=== PATIENT | female | born 1945 | race Caucasian/White ===

== ENCOUNTER → 2017-10-12 | Outpatient (CLI) | payer MEDICARE, OTHER ==
[~2017-10-12] MED LIST: CALC1TAB12 PO; COLA100C5 PO; LEVO75TA3 PO; META48.53 PO; MULTTAB67 PO; SACC1CAP3 PO; SIMV20TA PO
--- NOTE | 2017-10-12 10:09 | RADRPT ---
EXAM DATE/TIME: 10/12/2017 09:40 [facility] COMPARISON: No previous studies available for comparison. INDICATIONS : Evaluate for pneumonia, pneumthorax or communicable disease. Preop chest for hip replacement on MEDICAL HISTORY : Carcinoma, lung. SURGICAL HISTORY : right upper lung ENCOUNTER: Initial ACUITY: 1 day PAIN SCORE: 0/10 LOCATION: Bilateral chest FINDINGS: The heart and mediastinal contours are within normal limits. The lungs demonstrate chronic appearing interstitial changes but are otherwise clear. There are surgical clips noted in the right miles. Note is made of postsurgical changes in the posterior right fifth and sixth ribs. The remainder the v isualized osseous structures are grossly intact. CONCLUSION: 1. Post surgical changes. No acute abnormality. Trey Pascual MD on October 12, 2017 at 10:07 Board Certified Radiologist. This report was verified electronically.
[2017-10-12 10:16] LABS: PROTHROMBIN TIME - PATIENT 9.7 SEC (9.8-11.6)
[2017-10-12 10:17] LABS: AUTOMATED NEUTROPHIL # 3.8 TH/MM3 (1.8-7.7); BASOPHIL % 0.3 % (0.0-2.0); EOSINOPHIL # 0.1 TH/MM3 (0-0.4); EOSINOPHIL % 1.5 % (0.0-4.0); HEMATOCRIT 42.9 % (35.0-46.0); HEMOGLOBIN 14.5 GM/DL (11.6-15.3); LYMPH % 25.2 % (9.0-44.0); LYMPHOCYTE # 1.5 TH/MM3 (1.0-4.8); MEAN CELL VOLUME 95.5 FL (80.0-100.0); MEAN CORPUSCULAR HEMOGLOBIN 32.2 PG (27.0-34.0); MEAN CORPUSCULAR HGB CONC 33.7 % (32.0-36.0); MONO % 8.1 % (0.0-8.0); MONOCYTE # 0.5 TH/MM3 (0-0.9); NEUT % 64.9 % (16.0-70.0); PLATELET COUNT 218 TH/MM3 (150-450); RED BLOOD COUNT 4.49 MIL/MM3 (4.00-5.30); WHITE BLOOD COUNT 5.9 TH/MM3 (4.0-11.0)
[2017-10-12 10:17] LABS: BACTERIA, URINE RARE /hpf; BILIRUBIN, URINE NEG (NEG); BLOOD, URINE NEG (NEG); GLUCOSE,URINE NEG (NEG); KETONE, URINE NEG (NEG); MUCUS URINE FEW /lpf (OCC); NITRITE,URINE NEG (NEG); PH, URINE 5.5 (5.0-8.5); RENAL EPITHELIAL CELLS <1 /hpf; URINE COLOR YELLOW (YELLW/STRAW); URINE LEUKOCYTE ESTERASE LARGE (NEG)
[2017-10-12 10:30] LABS: BICARBONATE 29.1 MEQ/L (21.0-32.0); CALCIUM 9.6 MG/DL (8.5-10.1); CREATININE 0.83 MG/DL (0.50-1.00)
== END ==
LOC: CPRE 08:38
PROVIDERS: ATTEND Orthopaedic Surgery Orthopaedic Trauma
DX: Z01.810 Encounter for preprocedural cardiovascular examination (principal); Z01.811 Encounter for preprocedural respiratory examination; Z01.812 Encounter for preprocedural laboratory examination; Z01.818 Encounter for other preprocedural examination; Z96.60 Presence of unspecified orthopedic joint implant; Z79.01 Long term (current) use of anticoagulants; Z13.9 Encounter for screening, unspecified; M79.609 Pain in unspecified limb; R82.99 Other abnormal findings in urine
CPT/HCPCS: 36415; 71046; 80048; 81001; 85025; 85610; 85730; 87086

== ENCOUNTER → 2017-10-26 | Outpatient (CLI) | payer MEDICARE, OTHER ==
[~2017-10-26] MED LIST changes: +TYLE325T PO
--- NOTE | 2017-10-27 14:38 | EKG ---
Date Performed: 10/26/2017 Time Performed: 15:07:17 PTAGE: 72 years EKG: Sinus rhythm MARKED LEFT AXIS DEVIATION NONSPECIFIC ST & T-WAVE ABNORMALITY ABNORMAL ECG NO PREVIOUS TRACING DOCTOR: Sixto Beaver Interpretating Date/Time 10/27/2017 14:34:15
== END ==
LOC: CPRE 14:58
PROVIDERS: ATTEND Orthopaedic Surgery Orthopaedic Trauma
DX: Z01.810 Encounter for preprocedural cardiovascular examination (principal); M79.609 Pain in unspecified limb; R94.31 Abnormal electrocardiogram [ECG] [EKG]; Z96.60 Presence of unspecified orthopedic joint implant; Z79.01 Long term (current) use of anticoagulants; Z13.9 Encounter for screening, unspecified; Z01.818 Encounter for other preprocedural examination
CPT/HCPCS: 93005

== ENCOUNTER 2017-10-29 05:13 | Inpatient (IN) | payer MEDICARE, OTHER ==
[~2017-10-29] VITALS: Ht 157.5 cm; Wt 71.7 kg
[~2017-10-29 05:13] MED LIST changes: -TYLE325T PO
[2017-10-29] MEDS ORDERED: ceFAZolin 2 GM PREMIX 50 ML IV SCH ×2 (05:45→13:00)
[2017-10-29] MEDS ORDERED: ONDANSETRON HCL 4 MG/2 ML VIAL IV PUSH ONE (05:45)
[2017-10-29] MEDS ORDERED: DEXAMETHASONE SOD PHOS PF 10 MG/ML VIAL IV PUSH ONE (05:45)
[2017-10-29] MEDS ORDERED: VANCOMYCIN 1000 MG/NS 250 ML (for <70 kg) IV SCH ×2 (05:45)
[2017-10-29] MEDS ORDERED: POVIDONE IODINE 5% (ANTISEPSIS KIT) 4 APPLICATIONS EACH NARE PRN (05:45)
[2017-10-29] MEDS ORDERED: INSULIN HUMAN REGULAR 1,000 UNITS/10 ML VIAL SQ PRN (05:45)
[2017-10-29] MEDS ORDERED: GABAPENTIN 300 MG CAP PO ONE (05:45)
[2017-10-29] MEDS ORDERED: CHLORHEXIDINE GLUCONATE 2 % 1 PACK (2 CLOTHS) TOPICAL PRN (05:45)
[2017-10-29] MEDS ORDERED: CELECOXIB 200 MG CAP PO ONE (05:45)
[2017-10-29] MEDS ORDERED: METOPROLOL TARTRATE 25 MG TAB PO PRN (05:45)
[2017-10-29] MEDS ORDERED: SODIUM CHLORID 0.9% 500 ML IV PRN (05:45)
[2017-10-29] MEDS ORDERED: ACETAMINOPHEN 1000 MG/100 ML 100 ML IV ONE (05:45)
[2017-10-29] MEDS ORDERED: FAMOTIDINE 20 MG/2 ML VIAL IV PUSH ONE (05:45)
[2017-10-29] MEDS ORDERED: LACTATED RINGER'S 1000 ML IV PRN (05:45)
[2017-10-29] MEDS ORDERED: CHLORHEXIDINE GLUCONATE 4% SOLN 120 ML BTL TOPICAL SCH (05:45)
[2017-10-29] MEDS ORDERED: VANCOMYCIN 1 GM/200 ML INJ 200 ML IV ONE (05:46)
[2017-10-29] MEDS ORDERED: ACETAMINOPHEN 1000 MG/100 ML 0 ML IV ONE (06:21)
[2017-10-29] MEDS ORDERED: MIDAZOLAM HCL 2 MG/2 ML VIAL ONE (06:22)
[2017-10-29] MEDS ORDERED: FAMOTIDINE 20 MG/2 ML VIAL ONE (06:22)
[2017-10-29 06:24] LABS: BACTERIA, URINE RARE /hpf; BILIRUBIN, URINE NEG (NEG); BLOOD, URINE NEG (NEG); GLUCOSE,URINE NEG (NEG); KETONE, URINE NEG (NEG); MUCUS URINE FEW /lpf (OCC); NITRITE,URINE NEG (NEG); PH, URINE 6.5 (5.0-8.5); SQUAMOUS EPITHELIAL CELL URINE <1 /hpf (0-5); URINE COLOR YELLOW (YELLW/STRAW); URINE LEUKOCYTE ESTERASE NEG (NEG)
[2017-10-29] MEDS ORDERED: GENTAMICIN SULFATE 80 MG/2 ML VIAL ONE (06:34)
[2017-10-29] MEDS ORDERED: TRANEXAMIC ACID IV SCH (07:00)
[2017-10-29] MEDS ORDERED: BUPIVACAINE-EPI PF 0.25% INJ 20 ML, BUPIVACAINE LIPOSO PF 1.3% INJ 20 ML in SODIUM CHLO... P-ARTICULR SCH (07:00)
[2017-10-29] MEDS ORDERED: SODIUM CHLORIDE 0.9% IV SCH (07:00)
--- NOTE | 2017-10-29 08:57 | PD.OP ---
cc: Anatoly Ovalle MD Operative Report Date of Surgery: Oct 29, 2017 Preoperative Diagnosis: Severe left hip osteoarthritis Postoperative Diagnosis: Procedure: Left total hip arthroplasty by anterior approach Surgeon: Antaoly Ovalle Section Cutter(s): LOUISA Umanzor PA-C The surgical procedure was assisted by my physician home health assistant. My P.A. presence was necessary throughout this case for the manipulation and positioning of the surgical extremity. My P.A. was assisting me throughout the duration of this procedure. The skill set of a physician home health assistant was medically necessary to complete this procedure. During the surgical case the surgical nurse practitioner was working at the back table and the physician home health assistant was directly assisting me. Operation and Findings: PLAN OF ACTIVITY Weight bear as tolerated. DRAINS: 7-mm MILEY drain. IMPLANTS USED DePuy Corail size [11] collared stem with a size [48] Aurora Gription cup, [48 /32] Altrx poly liner, and a [standard +1 metal femoral head DETAILS OF PROCEDURE: This patient has a long history of hip pain. Patient was found to have severe osteoarthritis. The patient had radiographic evidence of joint space narrowing with [id number] arthritis and osteophytes around the acetabulum as well as the femoral head. There was also some cystic changes. The patient failed conservative treatment with pain medications, anti-inflammatories, physical therapy, assistive devices including a cane, as well as therapeutic injection of the hip. Patient's hip arthritis was limiting his ability to ambulate and perform activities of daily living. The patient wished to proceed with surgery and informed consent was obtained. Operative site was marked. I discussed both posterior approach and anterior approach with the patient and decision was made for anterior approach. Patient was brought to OR and placed on OR table. IV sedation and general anesthesia was administered by anesthesiologist. Patient positioned on a Sonam table and was given IV antibiotics. Time-out procedure was performed. The hip and thigh were prepped with alcohol followed by Hibiclens. The thigh was draped in the usual sterile fashion. Clean Air Suite was used for this procedure. The procedure began with a 5-inch incision over the anterolateral thigh. Subcutaneous tissue was dissected with Bovie. The fascia over the tensa fasciae latae was incised. Care was taken to avoid injury to the lateral femoral cutaneous nerve. The tensor muscle was retracted laterally. Sartorius was retracted medially. Retractors were now placed. The reflected head of the rectus is now elevated. A capsulotomy was performed over the anterior head capsule. Sutures were placed to help retract the capsule. At this point the femoral head and neck were identified. With soft tissue protected, oscillating saw was used to make a cut through the femoral neck, the femoral head was now removed. At this point attention was turned to preparation of the acetabulum. The labrum was excised. The acetabulum was sequentially reamed up to size [48]. A Aurora cup was now placed. There is a small area of bone cyst in the central portion of the acetabulum. This was filled with 1 cc of DBM. Fluoroscopy was used to aid in identification of appropriate version. Cup was fully impacted and found to have excellent fit. Hole eliminator was now placed. 2 screws were placed in appropriate position. The liner was now impacted into the cup. At this point the hip was externally rotated. A hook was placed around the proximal femur. The capsule was released off the lateral and medial femur. The hip was now extended and adducted. Retractors were placed around the proximal femur to allow for exposure. A box osteotome was used to remove the lateral cortex of the femoral neck. A broach was used to help lateralize the prosthesis. Canal finder was used to create a path down the canal. Next, the canal was sequentially broached up to size [11]. This was found to be an excellent fit. Calcar planer was placed. A standard head was placed, and the hip was reduced. The hip was found to have excellent stability with good range of motion. The leg lengths were measured under fluoroscopy and found to be equal compared to preoperatively. Trial broach was removed. The Corail stem was opened. Stem was fully impacted into the proximal femur in appropriate version. The femoral head was placed. The hip was again reduced. Fluoroscopy confirmed excellent alignment of prosthesis. The wound was thoroughly irrigated and capsule was closed with #1 Vicryl. The fascia over the tensor fasciae muscle was closed with #1 Vicryl, subcutaneous tissue was closed with 3-0 Vicryl and the skin was closed with dilcia and Dermabond skin closure. The capsule layers, muscle, and subcutaneous tissue were injected with a mixture of saline and bupivicaine. Dressings were applied. The patient was transferred to Recovery Room in stable condition. Anatoly Ovalle MD Oct 29, 2017 08:57
[2017-10-29] MEDS: ACETAMINOPHEN 1000 MG/100 ML 100 ML IV SCH ×2 (09:00→22:04)
[2017-10-29] MEDS: LACTATED RINGER'S 1000 ML INJ 1,000 ML IV SCH ×2 (09:00→22:11)
[2017-10-29] MEDS ORDERED: ACETAMINOPHEN/HYDROcodone 325 MG/10 MG TAB PO PRN (09:00)
[2017-10-29] MEDS ORDERED: ACETAMINOPHEN/HYDROcodone 325 MG/5 MG TAB PO PRN (09:00)
[2017-10-29] MEDS ORDERED: ACETAMINOPHEN/HYDROcodone 325 MG/7.5 MG TAB PO PRN (09:00)
[2017-10-29] MEDS ORDERED: NALOXONE HCL 0.4 MG/ML AMP IV PUSH PRN (09:00)
[2017-10-29] MEDS ORDERED: MORPHINE SULFATE 4 MG/ML INJ IV PUSH PRN (09:00)
[2017-10-29] MEDS: CELECOXIB 200 MG CAP PO SCH ×2 (09:00→21:06)
[2017-10-29] MEDS ORDERED: ONDANSETRON HCL 4 MG/2 ML VIAL IVP PRN (09:00)
[2017-10-29] MEDS ORDERED: Post-op Orders (for Pharmacy) XX ONE (09:20)
[2017-10-29] MEDS: KETOROLAC TROMETHAMINE 30 MG/ML (IVP) VIAL IV PUSH SCH ×2 (09:30→22:06)
[2017-10-29] MEDS ORDERED: PSYLLIUM HUSK SF 3.4 GM in 5.8 GM PKT PO PRN (10:00)
[2017-10-29] MEDS: LEVOTHYROXINE SODIUM 75 MCG TAB PO SCH (10:00)
[2017-10-29] MEDS ORDERED: TRANEXAMIC ACID INJ 1,000 MG in SODIUM CHLORIDE 0.9% INJ 100 ML IV ONE (10:00)
[2017-10-29] MEDS: CALCIUM/VITAMIN D 250 MG/125 U TAB PO SCH (10:00)
--- NOTE | 2017-10-29 11:11 | RADRPT ---
EXAM DATE/TIME: 10/29/2017 09:51 [facility] COMPARISON: No previous studies available for comparison. INDICATIONS : Post-op total left hip arthroplasty. MEDICAL HISTORY : None. SURGICAL HISTORY : Lobectomy. Colon resection. ENCOUNTER: Initial ACUITY: 1 day PAIN SCORE: 6/10 LOCATION: Left hip. FINDINGS: Patient is status post placement of a left hip prosthesis. There is good position and alignment of th e prosthesis and bony structures. The bony structures are grossly intact. Postsurgical changes are pr esent. CONCLUSION: Good position and alignment on this postoperative examination. Jorge L Monk MD on October 29, 2017 at 11:09 Board Certified Radiologist. This report was verified electronically.
[2017-10-29] MEDS ORDERED: DO NOT ADM ANY ANTICOAGULANT DRUGS PRN (11:45)
[2017-10-29 12:00] VITALS: BP 96/54; PULSE 78; RESP 18; TEMP 97.5; O2SAT 97
[2017-10-29] MEDS ORDERED: ROCURONIUM INJ 50 MG/5 ML SYRINGE IV PUSH ONE (12:00)
[2017-10-29] MEDS ORDERED: LIDOCAINE HCL 1% PF 5 ML SYRINGE OTHER ONE (12:00)
[2017-10-29] MEDS ORDERED: ePHEDrine/NS 25 MG/5 ML SYRINGE IV ONE (12:00)
[2017-10-29] MEDS ORDERED: ceFAZolin INJ 1,000 MG VIAL IV ONE (12:00)
[2017-10-29] MEDS ORDERED: ESMOLOL HCL 100 MG/10 ML VIAL IV ONE (12:00)
[2017-10-29] MEDS ORDERED: PHENYLEPH/NS 1000 MCG/10 ML SYR IV ONE (12:00)
[2017-10-29] MEDS ORDERED: LACTATED RINGER'S 1000 ML INJ 1,000 ML IV ONE (12:00)
[2017-10-29] MEDS ORDERED: NEOSTIGMINE 5 MG/5 ML SYRINGE IV PUSH ONE (12:00)
[2017-10-29] MEDS ORDERED: GLYCOPYRROLATE 1 MG/5 ML SYRINGE IV PUSH ONE (12:00)
[2017-10-29] MEDS ORDERED: PROPOFOL 200 MG/20 ML AMP IV ONE (12:00)
--- NOTE | 2017-10-29 13:40 | RADRPT ---
EXAM DATE/TIME: 10/29/2017 07:10 [facility] COMPARISON: No previous studies available for comparison. INDICATIONS : Left total hip replacement. MEDICAL HISTORY : None. SURGICAL HISTORY : None. ENCOUNTER: Initial ACUITY: 1 day PAIN SCORE: Non-responsive. LOCATION: Left hip FINDINGS: Patient is status post placement of a left hip prosthesis. There is good position and alignment of th e prosthesis and bony structures. The bony structures are grossly intact. Postsurgical changes are pr esent. CONCLUSION: Good position and alignment on this postoperative examination. Jorge L Monk MD on October 29, 2017 at 13:38 Board Certified Radiologist. This report was verified electronically.
[2017-10-29 15:32] VITALS: O2SAT 99
[2017-10-29 16:20] VITALS: BP 90/54; PULSE 83; RESP 18; TEMP 97.3; O2SAT 99
[2017-10-29] MEDS: VANCOMYCIN INJ 1,000 MG in SODIUM CHLOR 0.9% 250 ML INJ 250 ML IV SCH (17:04)
[2017-10-29] MEDS ORDERED: ACETAMINOPHEN 500 MG CPLT PO PRN (18:00)
[2017-10-29 19:20] VITALS: BP 103/70; PULSE 74; RESP 13; TEMP 97.5; O2SAT 93
[2017-10-29] MEDS: CEFAZOLIN INJ 2,000 MG in SODIUM CHLORIDE 0.9% INJ 100 ML IV SCH ×2 (19:41→19:42)
[2017-10-29] MEDS ORDERED: PRAVASTATIN SOD 40 MG TAB PO SCH (21:00)
[2017-10-30] VITALS: BP 101/69; PULSE 84; RESP 20; TEMP 98.3; O2SAT 97
[2017-10-30 04:00] VITALS: BP 100/56; PULSE 78; RESP 20; TEMP 98.3; O2SAT 98
[2017-10-30] MEDS: VANCOMYCIN INJ 1,000 MG in SODIUM CHLOR 0.9% 250 ML INJ 250 ML IV SCH (06:06)
[2017-10-30] MEDS: LEVOTHYROXINE SODIUM 75 MCG TAB PO SCH (06:06)
[2017-10-30 06:09] LABS: HEMATOCRIT 23.9 % (35.0-46.0); HEMOGLOBIN 8.1 GM/DL (11.6-15.3)
[2017-10-30 08:00] VITALS: BP 109/57; PULSE 83; RESP 16; TEMP 98; O2SAT 97
[2017-10-30] MEDS: CALCIUM/VITAMIN D 250 MG/125 U TAB PO SCH (08:08)
[2017-10-30] MEDS: ACETAMINOPHEN 1000 MG/100 ML 100 ML IV SCH (08:09)
[2017-10-30] MEDS: CELECOXIB 200 MG CAP PO SCH (08:09)
[2017-10-30] MEDS ORDERED: ENOXAPARIN SODIUM 40 MG/0.4 ML SYRINGE SQ SCH (09:00)
--- NOTE | 2017-10-30 09:00 | PD.ORT.PN ---
Subjective Subjective Remarks Doing well status post left total hip arthroplasty POD 1 Objective Vitals Vital Signs Date Time Temp Pulse Resp B/P (MAP) Pulse Ox O2 Delivery O2 Flow Rate FiO2 10/30/17 04:00 98.3 78 20 100/56 (71) 98 10/30/17 00:00 98.3 84 20 101/69 (80) 97 10/29/17 23:06 18 10/29/17 20:47 Nasal Cannula 2.00 10/29/17 19:20 97.5 74 13 103/70 (81) 93 10/29/17 16:20 97.3 83 18 90/54 (66) 99 10/29/17 15:32 99 Nasal Cannula 2.00 10/29/17 12:00 97.5 78 18 96/54 (68) 97 10/29/17 11:15 97.6 60 20 95/55 (68) 96 Nasal Cannula 2 10/29/17 10:30 60 20 98/52 (67) 96 Nasal Cannula 2 10/29/17 10:15 59 20 122/84 (97) 96 Nasal Cannula 2 10/29/17 10:00 60 20 94/47 (63) 96 Nasal Cannula 2 10/29/17 09:45 63 22 98/54 (69) 95 Nasal Cannula 2 10/29/17 09:24 97.6 105 22 101/53 (69) 95 Nasal Cannula 2 I/O 10/29/17 10/29/17 10/29/17 10/30/17 10/30/17 10/30/17 07:00 15:00 23:00 07:00 15:00 23:00 Intake Total 2100 ml 480 ml 320 ml Output Total 350 ml Balance 1750 ml 480 ml 320 ml Intake Oral 480 ml 320 ml Other 2100 ml Output Estimated Blood Loss 350 ml # Voids 1 3 # Bowel Movements 0 0 Result Diagram: 10/30/17 0540 Imaging Last 72 hours Impressions Hip and Pelvis X-Ray 10/29/17 0850 Signed Impressions: Service Date/Time: October 09:51 - CONCLUSION: Good position and alignment on this postoperative examination. Jorge L Monk MD Hip X-Ray 10/29/17 0000 Signed Impressions: Service Date/Time: October 07:10 - CONCLUSION: Good position and alignment on this postoperative examination. Jorge L Monk MD Objective Remarks Left lower extremity: Clean dry dressings intact. Mild swelling. Distally intact sensation with good capillary refills. She has active dorsiflexion and plantar flexion foot Assessment & Plan Assessment and Plan Left total hip arthroplasty anterior approach POD 1 Weightbearing as tolerated Lovenox Incentive spirometry Maintain dressing for 6 days then change to Primapore only taking care to leave surgical incision tape in place. Discharge to home today with physical therapy if safe Follow-up Dr. Ovalle or PA in 2 weeks Home medications have been sent to her pharmacy Mingo Camargo Jr. Oct 30, 2017 09:00
--- NOTE | 2017-10-30 09:03 | HHI.FF ---
Face to Face Verification Diagnosis: (1) Status post left hip replacement Physical Therapy Gait training, Safety evaluation Hip: Total hip, Protocol: Left, Posterior hip precautions, Progress to weight bearing Left LE Weight Bearing: WB as tolerated S/P Spinal Fusion: Gait training with walker, Weight bearing as tolerated Nursing Dressing Changes: Other Additional Instructions Leave dressing in place for 6 days then remove silver dressing taking care to avoid pulling surgical tape over incision. Then apply Primapore which may be changed every other day as long as incision is clean and dry without any drainage. Leave Dermabond surgical tape in place until office visit I have seen patient Anastasiya Monaco on 10/30/17. My clinical findings support the need for the requested home health care services because: Limited ability to care for self I certify that my clinical findings support that this patient is homebound because: Unsteady gait/balance Mingo Camargo Jr. Oct 30, 2017 09:03
[2017-10-30] MEDS: LACTATED RINGER'S 1000 ML INJ 1,000 ML IV SCH (10:00)
[2017-10-30] MEDS ORDERED: TYLE325T PO (11:48)
[2017-10-30] MEDS ORDERED: DOCUSATE SODIUM 100 MG CAP PO SCH (21:00)
== END 2017-10-30 13:41 | disposition home health service (06) | DRG 470 ==
LOC: HSDI 05:13 → EDUNIT# 07:00 → N06B 11:45
PROVIDERS: ADMIT Orthopaedic Surgery Orthopaedic Trauma; ATTEND Orthopaedic Surgery Orthopaedic Trauma
PROC: 0SRB02A Replacement of Left Hip Joint with Metal on Polyethylene Synthetic Substitute, Uncemented, Open Approach (ICD-10-PCS; principal; 2017-10-29 06:50)
DX: M16.12 Unilateral primary osteoarthritis, left hip (principal); Z90.2 Acquired absence of lung [part of]; E78.5 Hyperlipidemia, unspecified; M25.752 Osteophyte, left hip; M85.68 Other cyst of bone, other site; Z85.118 Personal history of other malignant neoplasm of bronchus and lung; Z90.49 Acquired absence of other specified parts of digestive tract; M79.609 Pain in unspecified limb; R94.31 Abnormal electrocardiogram [ECG] [EKG]
CPT/HCPCS: 73501; 76000; 81001; 85014; 85018; 86850; 86900; 86901; C1776; C9290; J0131; J0690; J1100; J1580; J1650; J1885; J2250; J2370; J2405; J2710; J3010; J3370; J7050; J7120